=== PATIENT | male | born 1965 | race Caucasian/White ===

== ENCOUNTER 2020-03-29 16:48 | Emergency (ER) | payer OTHER ==
[~2020-03-29] VITALS: Ht 160 cm; Wt 73.9 kg
[2020-03-29 16:55] VITALS: BP 120/80; Ht 160 cm; Wt 73.9 kg
== END 2020-03-29 18:59 | disposition home or self-care (01) ==
LOC: ED 16:48
DX: S05.02XA Injury of conjunctiva and corneal abrasion without foreign body, left eye, initial encounter (principal); X58.XXXA Exposure to other specified factors, initial encounter; Y93.89 Activity, other specified; Y92.89 Other specified places as the place of occurrence of the external cause; Y99.8 Other external cause status
CPT/HCPCS: 90715